=== PATIENT | female | born 1980 | race Caucasian/White ===

== ENCOUNTER → 2017-03-09 | Outpatient (CLI) | payer OTHER ==
[~2017-03-09] MED LIST: OMNIPAQUE 180 MG/ML, 10ML VIAL ONE
== END | disposition home or self-care (01) ==
LOC: RAD 14:32
PROVIDERS: ATTEND Obstetrics & Gynecology
DX: N97.0 Female infertility associated with anovulation (principal)
CPT/HCPCS: 74740; Q9965